=== PATIENT | female | born 1940 | race Caucasian/White ===

== ENCOUNTER 2022-12-01 10:27 | Observation (INO) | payer OTHER ==
[~2022-12-01] VITALS: Ht 165.1 cm; Wt 99.8 kg
[2022-12-01 10:30] VITALS: BP_SYST 124
[2022-12-01] MEDS ORDERED: HUMAN PROTHROMBIN COMPLX IV ONE (10:45)
[2022-12-01] MEDS ORDERED: WATER FOR INJECTION STERILE IV ONE (10:45)
[2022-12-01 11:02] LABS: BASOPHILS # (AUTO) 0.1 K/uL (0.0-0.2); BASOPHILS % (AUTO) 0.9 % (0.0-2.0); EOSINOPHILS # (AUTO) 0.3 K/uL (0.0-0.4); EOSINOPHILS % (AUTO) 4.6 % (0.0-4.0); HEMATOCRIT 37.8 % (36-48); HEMOGLOBIN 12.6 g/dL (12.0-16.0); LYMPHOCYTES % (AUTO) 14.7 % (20.5-51.5); MEAN CORPUSCULAR HEMOGLOBIN 30 pg (27-31); MEAN CORPUSCULAR HGB CONC 33 % (32-36); MEAN CORPUSCULAR VOLUME 89 fL (79.0-98.0); MONOCYTES # (AUTO) 0.5 K/uL (0.0-1.0); MONOCYTES % (AUTO) 8.1 % (1.7-9.3); NEUTROPHILS # (AUTO) 4.8 K/uL (1.8-7.7); NEUTROPHILS % (AUTO) 71.7 % (40.0-70.0); PLATELET COUNT (AUTO) 273 K/uL (130-430); RED BLOOD CELL COUNT(AUTO) 4.25 MIL/uL (4.2-6.2); WHITE BLOOD COUNT (AUTO) 6.8 K/uL (4.8-10.8)
[2022-12-01 11:16] LABS: ANION GAP 7 (5-15); CHLORIDE 106 mmol/L (98-107); CREATININE 0.81 mg/dL (0.55-1.30); GLUCOSE 110 mg/dL (70-99); UREA NITROGEN, BLOOD 22 mg/dL (8-21)
[2022-12-01] MEDS ORDERED: HUMAN PROTHROMBIN COMPLX(PCC) 500 UNITS KIT IV ONE ×2 (11:19→11:27)
[2022-12-01 11:23] LABS: INR 1.1 (0.8-1.2); PROTHROMBIN TIME 11.5 SECS (9.5-12.5)
[2022-12-01] MEDS ORDERED: APIX5TAB4 PO (13:58)
[2022-12-01] MEDS ORDERED: SACU1TAB7 PO (13:58)
[2022-12-01] MEDS ORDERED: LEVO25TA7 PO (13:58)
[2022-12-01] MEDS ORDERED: LOVA20TA2 PO (13:58)
[2022-12-01] MEDS ORDERED: SPIR25TA6 PO (13:58)
[2022-12-01] MEDS ORDERED: METO50TA7 PO (13:58)
[2022-12-01] MEDS ORDERED: VERI2.5T PO (13:58)
[2022-12-01 20:46] VITALS: BP_SYST 98
[2022-12-01] MEDS ORDERED: ONDANSETRON 4 MG ODT TAB PO PRN (23:30)
[2022-12-01] MEDS ORDERED: MORPHINE 2 MG/ML INJ. SYRINGE IVP PRN ×2 (23:30)
[2022-12-01] MEDS ORDERED: NALOXONE HCL 0.4 MG/ML AMP (NARCAN) IVP PRN ×2 (23:30)
[2022-12-01] MEDS ORDERED: ACETAMINOPHEN 650 MG/20.3 ML UDC GT PRN (23:30)
[2022-12-02] VITALS: BP_SYST 103
[2022-12-02 05:38] LABS: BASOPHILS % (AUTO) 0.8 % (0.0-2.0); EOSINOPHILS # (AUTO) 0.2 K/uL (0.0-0.4); EOSINOPHILS % (AUTO) 3.2 % (0.0-4.0); HEMATOCRIT 33.7 % (36-48); HEMOGLOBIN 11.3 g/dL (12.0-16.0); LYMPHOCYTES % (AUTO) 18.2 % (20.5-51.5); MEAN CORPUSCULAR HEMOGLOBIN 30 pg (27-31); MEAN CORPUSCULAR HGB CONC 34 % (32-36); MEAN CORPUSCULAR VOLUME 89 fL (79.0-98.0); MONOCYTES # (AUTO) 0.7 K/uL (0.0-1.0); MONOCYTES % (AUTO) 11.6 % (1.7-9.3); NEUTROPHILS # (AUTO) 3.7 K/uL (1.8-7.7); NEUTROPHILS % (AUTO) 66.2 % (40.0-70.0); PLATELET COUNT (AUTO) 265 K/uL (130-430); WHITE BLOOD COUNT (AUTO) 5.6 K/uL (4.8-10.8)
[2022-12-02 05:55] LABS: ANION GAP 9 (5-15); CALCIUM 9.6 mg/dL (8.4-11.0); CHLORIDE 107 mmol/L (98-107); CREATININE 0.72 mg/dL (0.55-1.30); GLUCOSE 107 mg/dL (70-99); UREA NITROGEN, BLOOD 22 mg/dL (8-21)
[2022-12-02] MEDS: LEVOTHYROXINE SODIUM 0.1 MG TABLET PO SCH (06:14)
[2022-12-02 08:00] VITALS: BP_SYST 95
[2022-12-02] MEDS: APIXABAN 2.5 MG TABLET PO SCH ×2 (10:00→20:24)
[2022-12-02 11:28] VITALS: BP_SYST 109
[2022-12-02] MEDS: ACETAMINOPHEN 650 MG/20.3 ML UDC PO PRN ×2 (12:38→20:23)
[2022-12-02] MEDS: SPIRONOLACTONE 25 MG TABLET (ALDACTONE) PO SCH (15:16)
[2022-12-02] MEDS: METOPROLOL SUCCINATE 50 MG TAB.SR.24H (TOPROL XL) PO SCH ×2 (15:18→20:24)
[2022-12-02] MEDS: SACUBITRIL/VALSARTAN 24 MG-26 MG 1 TABLET PO SCH ×2 (15:18→20:25)
[2022-12-02 15:44] VITALS: BP_SYST 108
[2022-12-02] MEDS ORDERED: ATORVASTATIN 10 MG TABLET PO SCH (18:00)
[2022-12-02 20:00] VITALS: BP_SYST 118
[2022-12-03] VITALS: BP_SYST 112
[2022-12-03] MEDS: LEVOTHYROXINE SODIUM 0.1 MG TABLET PO SCH (06:38)
[2022-12-03 07:02] LABS: BASOPHILS # (AUTO) 0.1 K/uL (0.0-0.2); BASOPHILS % (AUTO) 1.1 % (0.0-2.0); EOSINOPHILS # (AUTO) 0.3 K/uL (0.0-0.4); EOSINOPHILS % (AUTO) 5.1 % (0.0-4.0); HEMATOCRIT 33.5 % (36-48); HEMOGLOBIN 11.3 g/dL (12.0-16.0); LYMPHOCYTES # (AUTO) 1.1 K/uL (1.0-5.5); LYMPHOCYTES % (AUTO) 20.4 % (20.5-51.5); MEAN CORPUSCULAR HEMOGLOBIN 30 pg (27-31); MEAN CORPUSCULAR HGB CONC 34 % (32-36); MEAN CORPUSCULAR VOLUME 89 fL (79.0-98.0); MONOCYTES # (AUTO) 0.6 K/uL (0.0-1.0); MONOCYTES % (AUTO) 10.4 % (1.7-9.3); NEUTROPHILS # (AUTO) 3.5 K/uL (1.8-7.7); PLATELET COUNT (AUTO) 257 K/uL (130-430); RED BLOOD CELL COUNT(AUTO) 3.77 MIL/uL (4.2-6.2); RED CELL DISTRIBUTION WIDTH 13.9 % (9.0-15.0); WHITE BLOOD COUNT (AUTO) 5.5 K/uL (4.8-10.8)
[2022-12-03 07:30] LABS: ANION GAP 9 (5-15); CALCIUM 9.2 mg/dL (8.4-11.0); CHLORIDE 108 mmol/L (98-107); CREATININE 0.66 mg/dL (0.55-1.30); GLUCOSE 115 mg/dL (70-99); UREA NITROGEN, BLOOD 19 mg/dL (8-21)
[2022-12-03] MEDS: SACUBITRIL/VALSARTAN 24 MG-26 MG 1 TABLET PO SCH (08:55)
[2022-12-03] MEDS: APIXABAN 2.5 MG TABLET PO SCH (08:58)
[2022-12-03] MEDS: METOPROLOL SUCCINATE 50 MG TAB.SR.24H (TOPROL XL) PO SCH (08:59)
[2022-12-03] MEDS: SPIRONOLACTONE 25 MG TABLET (ALDACTONE) PO SCH (08:59)
[2022-12-03] MEDS: ACETAMINOPHEN 650 MG/20.3 ML UDC PO PRN (09:02)
[2022-12-03 11:29] VITALS: BP_SYST 126
[2022-12-03 12:19] VITALS: BP_SYST 121
== END 2022-12-03 13:10 | disposition home or self-care (01) ==
LOC: SED 10:27 → SMU 14:22
PROVIDERS: ADMIT Specialist; ATTEND Specialist
DX: S80.01XA Contusion of right knee, initial encounter (principal); Z20.822 Contact with and (suspected) exposure to COVID-19; S00.33XA Contusion of nose, initial encounter; I11.0 Hypertensive heart disease with heart failure; I50.9 Heart failure, unspecified; E03.9 Hypothyroidism, unspecified; E78.00 Pure hypercholesterolemia, unspecified; I42.9 Cardiomyopathy, unspecified; Z90.710 Acquired absence of both cervix and uterus; Z79.899 Other long term (current) drug therapy; W01.0XXA Fall on same level from slipping, tripping and stumbling without subsequent striking against object, initial encounter; Y93.89 Activity, other specified; Y92.89 Other specified places as the place of occurrence of the external cause
CPT/HCPCS: 96365; 96366 ×2; 80048 ×3; 85025 ×3; 85610; 85730; 36415 ×3; 73560; 70450; 76376; 99285; 87426; 97116; 97162; G0378 ×3